=== PATIENT | female | born 1990 | race Hispanic/Latino ===

== ENCOUNTER 2017-10-06 20:01 | Emergency (ER) | payer MEDICAID, OTHER ==
[2017-10-06] MEDS ORDERED: Acetaminophen 500 MG TAB ONE (20:17)
[2017-10-06] MEDS ORDERED: Ondansetron ODT 4 MG TAB ONE (20:19)
== END 2017-10-06 20:50 | disposition home or self-care (01) ==
LOC: NAV ERS 20:01
DX: O98.511 Other viral diseases complicating pregnancy, first trimester (principal); B34.9 Viral infection, unspecified; Z3A.12 12 weeks gestation of pregnancy
CPT/HCPCS: 87804; 99283; Q0162